=== PATIENT | female | born 1990 | race Caucasian/White ===

== ENCOUNTER 2019-04-15 01:49 | Emergency (ER) | payer OTHER ==
[~2019-04-15] VITALS: Ht 157.5 cm; Wt 72.0 kg
[2019-04-15] MEDS ORDERED: SODIUM CHLORIDE 0.9% 1,000 ML IV ONE (02:20)
[2019-04-15] MEDS ORDERED: LORAZEPAM 2MG/ML CPJ IV ONE (02:30)
[2019-04-15] MEDS ORDERED: METOCLOPRAMIDE HCL 10MG/2ML VIAL IV ONE (02:30)
[2019-04-15 02:50] LABS: BASOPHILS % 1.1 % (0.0-2.0); EOSINOPHILS % 0.7 % (0.0-5.0); HEMATOCRIT. 36.7 % (36.0-48.0); HEMOGLOBIN. 12.6 g/dL (12.0-16.0); LYMPHOCYTES % 27.3 % (20.0-50.0); MEAN CORPUSCULAR HEMOGLOBIN 31.3 pg (28.0-32.0); MEAN CORPUSCULAR VOLUME 91.5 fL (81.0-99.0); MEAN PLATELET VOLUME 8.2 fl (7.4-10.4); MONOCYTES % 6.9 % (2.0-8.0); PLATELET 279 x1000/uL (130-400); RED BLOOD CELL COUNT 4.01 mill/uL (4.2-5.4); RED CELL DISTRIBUTION WIDTH 13.8 % (11.6-14.6)
[2019-04-15 02:53] LABS: CHLORIDE 106 mEq/L (98-107)
[2019-04-15 03:29] LABS: *AMPHETAMINES SCREEN URINE NEGATIVE (NEGATIVE)
[2019-04-15 03:31] LABS: *BARBITURATES SCREEN URINE NEGATIVE (NEGATIVE); *BENZODIAZEPINES SCREEN URINE NEGATIVE (NEGATIVE); *COCAINE SCREEN URINE NEGATIVE (NEGATIVE); CANNABINOID URINE SCREEN NEGATIVE (NEGATIVE); METHADONE URINE SCREEN NEGATIVE (NEGATIVE); OPIATES URINE SCREEN NEGATIVE (NEGATIVE); PHENCYCLIDINE URINE SCREEN NEGATIVE (NEGATIVE)
[2019-04-15 06:05] VITALS: BP 99/55
== END 2019-04-15 06:17 | disposition home or self-care (01) ==
LOC: ER 01:49
DX: G43.909 Migraine, unspecified, not intractable, without status migrainosus (principal)
CPT/HCPCS: 36415; 70450; 80053; 80305; 85025; 96374; 96375; 99284; J2060; J2765; J7030

== ENCOUNTER 2025-09-01 05:07 | Emergency (ER) | payer MEDICAID, OTHER ==
[~2025-09-01] VITALS: Ht 154.9 cm; Wt 109.0 kg
[2025-09-01 05:17] VITALS: O2SAT 99
[2025-09-01] MEDS: MAGNESIUM/ALUMINUM HYDROXIDE/SIMETHICONE 30ML UDC PO ONE (06:34)
[2025-09-01] MEDS: VISCOUS LIDOCAINE 2% 15 ML UDC MM NR (06:34)
[2025-09-01] MEDS: ACETAMINOPHEN 325MG TABLET PO ONE (06:34)
[2025-09-01] MEDS: FLUTICASONE PROPIONATE 50MCG/SPRAY BOTTLE BOTHNSTRLS STA (06:34)
[2025-09-01] MEDS: VISCOUS LIDOCAINE 2% 15 ML UDC MM ONE (06:35)
[2025-09-01 07:30] LABS: INFLUENZA TYPE A Presumptive Negative (Pres. Neg.)
[2025-09-01 07:31] LABS: INFLUENZA TYPE B Presumptive Negative (Pres. Neg.)
[2025-09-01] MEDS ORDERED: TOPUD PO (07:35)
[2025-09-01] MEDS ORDERED: BENZ1LOZ73 PO (07:36)
[2025-09-01 07:50] VITALS: BP 147/78; PULSE 83; RESP 16; TEMP 37; O2SAT 97
== END 2025-09-01 07:51 | disposition home or self-care (01) ==
LOC: ER 05:07
DX: J02.9 Acute pharyngitis, unspecified (principal); J45.909 Unspecified asthma, uncomplicated; Z20.822 Contact with and (suspected) exposure to COVID-19
CPT/HCPCS: 71045; 87070; 87426; 87430; 87804; 99284